=== PATIENT | female | born 1940 | race Caucasian/White ===

== ENCOUNTER 2021-08-01 11:22 | Emergency (ER) | payer OTHER ==
[~2021-08-01] VITALS: Ht 160 cm; Wt 68.0 kg
[~2021-08-01 11:22] MED LIST: APETIGEN ELIXI120 ML PO; ATOVASTATIN PO; CIPRO500 MG PO; FLAGYL500MG PO; INTESTINEX1 CA1 PO; LISINOPRIL10 MG PO; MEGESTROL400 MG/10; Neurontin PO; SEPTRA DS TABLE1 TAB PO; TRAMADOL HCL50 MG; TRAMADOL HCL50 MG PO
[2021-08-01] MEDS ORDERED: LIPITOR20 MG PO (11:56)
[2021-08-01] MEDS ORDERED: COZAAR100 MG PO (11:57)
[2021-08-01] MEDS ORDERED: AMLODIPINE-OLM1 EAC2 PO (11:57)
== END 2021-08-01 20:55 | disposition home or self-care (01) ==
LOC: ER 11:22
DX: K46.9 Unspecified abdominal hernia without obstruction or gangrene (principal); Z88.6 Allergy status to analgesic agent; I10 Essential (primary) hypertension

== ENCOUNTER 2021-08-06 16:46 | Emergency (ER) | payer OTHER ==
[~2021-08-06] VITALS: Ht 149.9 cm; Wt 52.2 kg
[~2021-08-06 16:46] MED LIST changes: +AMLODIPINE-OLM1 EAC2 PO; +COZAAR100 MG PO; +LIPITOR20 MG PO
== END 2021-08-06 20:21 | disposition home or self-care (01) ==
LOC: ER 16:46
DX: K62.5 Hemorrhage of anus and rectum (principal)

== ENCOUNTER 2021-09-10 09:44 | Emergency (ER) | payer OTHER ==
[~2021-09-10] VITALS: Ht 152.4 cm; Wt 53.5 kg
[2021-09-10] MEDS ORDERED: AMLODIPINE BESYL5 MG PO (09:58)
[2021-09-10] MEDS ORDERED: LOSARTAN POTAS100 MG PO (09:58)
[2021-09-10] MEDS ORDERED: PANTOPRAZOLE SO40 MG PO (09:58)
[2021-09-10] MEDS ORDERED: ATORVASTATIN CA40 MG PO (09:58)
[2021-09-10] MEDS ORDERED: FUROSEMIDE20 MG PO (09:58)
== END 2021-09-10 14:24 | disposition home or self-care (01) ==
LOC: ER 09:44
DX: K62.5 Hemorrhage of anus and rectum (principal); R10.9 Unspecified abdominal pain; K42.9 Umbilical hernia without obstruction or gangrene; E11.9 Type 2 diabetes mellitus without complications; I10 Essential (primary) hypertension; Z88.6 Allergy status to analgesic agent

== ENCOUNTER 2021-09-14 06:00 | Day surgery (SDC) | payer OTHER ==
[~2021-09-14 06:00] MED LIST changes: +AMLODIPINE BESYL5 MG PO; +ATORVASTATIN CA40 MG PO; +FUROSEMIDE20 MG PO; +LOSARTAN POTAS100 MG PO; +PANTOPRAZOLE SO40 MG PO
== END 2021-09-14 12:00 | disposition home or self-care (01) ==
LOC: AMB-ENDOS 06:00
PROVIDERS: ATTEND Colon & Rectal Surgery
DX: C20 Malignant neoplasm of rectum (principal); K92.1 Melena; K64.4 Residual hemorrhoidal skin tags